=== PATIENT | male | born 1970 | race Two or more races ===

== ENCOUNTER 2024-10-15 11:18 | Emergency (ER) | payer OTHER ==
[~2024-10-15] VITALS: Ht 175.3 cm; Wt 65.8 kg
[2024-10-15] MEDS ORDERED: ORPHENADRINE CITRATE 30 MG/ML AMPUL IM ONE (11:45)
[2024-10-15] MEDS ORDERED: KETOROLAC TROMETHAMINE 30 MG VIAL IM ONE (11:45)
[2024-10-15] MEDS ORDERED: KETOROLAC TROMETHAMINE 60 MG VIAL IM ONE (12:29)
[2024-10-15] MEDS ORDERED: ORPHENADRINE CITRATE 30 MG/ML AMPUL ONE (12:30)
== END 2024-10-15 14:23 | disposition home or self-care (01) ==
LOC: ER 11:20
DX: M54.50 Low back pain, unspecified (principal)

== ENCOUNTER 2024-10-23 12:32 | Emergency (ER) | payer OTHER ==
[~2024-10-23] VITALS: Ht 175.3 cm; Wt 65.8 kg
[2024-10-23] MEDS ORDERED: 0.9 % SODIUM CHLORIDE 1,000 ML IV STA (13:44)
[2024-10-23 14:25] LABS: PH,URINE 6.5 (5.0-8.0); URINE APPEARANCE Clear; URINE BILIRRUBIN Negative (NEGATIVE); URINE BLOOD Negative; URINE COLOR Yellow; URINE GLUCOSE Negative (NEGATIVE); URINE KETONE Negative (NEGATIVE); URINE LEUKOCYTE Negative; URINE NITRATE Negative; URINE PROTEIN Negative (NEGATIVE); URINE UROBILINOGEN 0.2 E.U./dl
[2024-10-23 14:30] LABS: HEMATOCRIT 43.5 % (39.0-48.0); HEMOGLOBIN 15.1 g/dL (13-16.00); MEAN CELL VOLUME 95.5 fL (80.0-100.00); MEAN CORPUSCULAR HEMOGLOBIN 33.1 pg (27.00-32.0); MEAN CORPUSCULAR HGB CONC 34.6 g/dl (32.0-36.0); PLATELET COUNT 303 K/uL (150-450); RED BLOOD COUNT 4.55 M/uL (4.00-6.00); RED CELL DISTRIBUTION WIDTH 11.9 % (11.5-14.5)
[2024-10-23 14:35] LABS: URINE BACTERIA 0 uL (0.0-1933); URINE EPITHELIAL CELLS 0.1 uL (0.0-38.8); URINE RBC 1.3 uL (0.0-20.8); URINE WBC 0.4 uL (0.0-23.2)
[2024-10-23] MEDS ORDERED: KETOROLAC TROMETHAMINE 30 MG VIAL ONE (14:43)
[2024-10-23 14:51] LABS: CALCIUM 9.3 mg/dL (8.5-10.1); CREATININE SERUM 0.93 mg/dL (0.70-1.30); GFR 84.05; POTASSIUM 3.59 mEq/L (3.5-5.1)
== END 2024-10-23 18:01 | disposition home or self-care (01) ==
LOC: ER 12:34
PROVIDERS: Emergency Medicine
DX: K52.89 Other specified noninfective gastroenteritis and colitis (principal)